=== PATIENT | female | born 1965 | race Two or more races ===

== ENCOUNTER 2018-01-14 13:46 | Outpatient (CLI) | payer OTHER ==
[2018-01-14] MEDS ORDERED: TESTOSTERONE1.25 GM TD (14:40)
[2018-01-14] MEDS ORDERED: CLARITIN5 MG ORAL (14:40)
[2018-01-14] MEDS ORDERED: ZANTAC150 MG ORAL (14:41)
[2018-01-14] MEDS ORDERED: PEPCID40 MG/5 ML PO (14:41)
--- NOTE | 2018-01-14 14:43 | GI Initial Consult Note ---
History of Present Illness General Date patient seen: Jan 14, 2018 Time patient seen: 14:37 Referring physician: HMO Reason for Consultation: Abdominal pain Present Illness HPI 52 year old female patient presents today with c/o of abdominal/epigastric pain occurring over a period of 2 weeks. In addition, patient reports constipation, abdominal bloating and belching and left shoulder pain. She stated she had a recent ED admission, which she had a KUB and was unremarkable. She had both EGD /colonoscopy December 2016 noted with diverticulosis. She had weight loss in the past, however is stable at this time. No signs of abuse or neglect. Patient is not fall risk. Home Meds Reported Medications Ranitidine Hcl* (ZANTAC*) 150 Mg Tablet, 150 MG ORAL DAILY, #30 TAB 0 Refills 01/14/18 Famotidine (PEPCID) 40 Mg/5 Ml Oral.susp, 40 MG PO, ML 01/14/18 Loratadine (CLARITIN) Unknown Strength Tab.rapdis, ORAL DAILY, TAB 01/14/18 Testosterone (Testosterone) Unknown Strength Gel.packet, TD 01/14/18 Med list reviewed/reconciled: Yes Allergies: Coded Allergies: Iodine (Unverified Allergy, Severe, 01/14/18) Macrobid (Unverified Allergy, Severe, 01/14/18) Patient History History Provided By: Patient, Medical Record PMH Narrative ?HTN Anxiety GERD Hx of Cdiff Past Surgical History: Cosmetic >> Breast reduction Family History Narrative Father had heart disease. Denies family history of CA. Social History: Reports: alcohol use - social, other - coffee, chocolate Review of Systems All Other Systems: negative except mentioned in HPI Physical Exam T 98.1 BP 122/81 P 66 99 RA Sp02 EP Interpretation: reviewed, normal General Appearance: well appearing, no apparent distress, alert Head: normocephalic EENT: PERRL/EOMI, normal ENT inspection Neck: supple Respiratory: normal breath sounds, no respiratory distress Cardiovascular: normal rate Gastrointestinal: normal inspection, non tender, soft, normal bowel sounds, non -distended Rectal: deferred Genitourinary: no CVA tenderness Musculoskeletal: normal inspection, back normal Neurologic: normal inspection, alert, oriented x3, responsive Psychiatric: normal inspection, judgement/insight normal, memory normal Skin: normal inspection, normal color, no rash, warm/dry, palpation normal, well hydrated Lymphatic: normal inspection, no adenopathy GI: Plan Problems: (1) Abdominal pain (2) GERD (gastroesophageal reflux disease) (3) Abdominal bloating (4) Constipation Plan Rx Omeprazole 40mg Rx Miralax Trial VSL #3 RTC x [address] Saravia. Thank you for this patient referral. The patient was seen and examined at bedside and all new and available data was reviewed in the patients chart. I agree with the above findings, impression and plan. (Patient seen earlier today. Signature stamp does not reflect patient encounter time.). - MD Mohini [facility]enezT[facility] Jan 14, 2018 14:43
[2018-01-14 15:53] VITALS: BP 122/81
== END 2018-01-14 14:16 | disposition home or self-care (01) ==
LOC: PAN 13:46
DX: K21.9 Gastro-esophageal reflux disease without esophagitis (principal); K59.00 Constipation, unspecified; R14.0 Abdominal distension (gaseous); M25.512 Pain in left shoulder; F41.9 Anxiety disorder, unspecified
CPT/HCPCS: 99202